=== PATIENT | female | born 1970 | race Caucasian/White ===

== ENCOUNTER 2018-07-28 21:23 | Emergency (ER) | payer BC ==
[~2018-07-28] VITALS: Ht 167.6 cm; Wt 57.6 kg
[2018-07-28] MEDS ORDERED: diltiazem 5mg/ml 5ml inj. IV STA (22:03)
[2018-07-28 22:12] LABS: BASOPHILS % (AUTO) 0.6 % (0-1); EOSINOPHILS # (AUTO) 0.1 X10'3 (0-0.9); HEMATOCRIT 46.5 % (35.0-45.0); HEMOGLOBIN 15.1 g/dl (12.0-16.0); LYMPHOCYTES # (AUTO) 2.3 X10'3 (1.1-4.8); LYMPHOCYTES % (AUTO) 29.5 % (21-51); MEAN CORPUSCULAR HEMOGLOBIN 31.2 PG (27.0-31.0); MEAN CORPUSCULAR HGB CONC 32.5 % (33.0-36.5); MEAN CORPUSCULAR VOLUME 95.9 FL (78-98); MEAN PLATELET VOLUME 8.8 FL (7.4-10.4); MONOCYTES # (AUTO) 0.5 X10'3 (0-0.9); MONOCYTES % (AUTO) 6.7 % (2-12); NEUTROPHILS # (AUTO) 4.8 X10'3 (1.8-7.7); NEUTROPHILS % (AUTO) 62.2 % (42-75); PLATELET COUNT 258 X10'3 (140-440); RED BLOOD COUNT 4.85 X10'6 (4.20-5.60); WHITE BLOOD COUNT 7.7 X10'3 (4.5-11.0)
[2018-07-28 22:22] LABS: ALANINE AMINOTRANSFERASE 27 U/L (12-78); ALBUMIN 4.3 G/DL (3.4-5.0); ALBUMIN/GLOBULIN RATIO 1.1 (1.1-1.5); ALKALINE PHOSPHATASE 80 IU/L (46-116); ANION GAP 15 (8-16); ASPARTATE AMINO TRANSFERASE 21 U/L (10-37); BILIRUBIN,TOTAL 0.2 MG/DL (0.1-1.0); BLOOD UREA NITROGEN 11 MG/DL (7-18); BUN/CREATININE RATIO 13.9 (6.6-38.0); CALCIUM 9.5 MG/DL (8.5-10.1); CHLORIDE 103 MMOL/L (99-107); CREATININE 0.79 MG/DL (0.40-0.90); GLUCOSE 112 MG/DL (70-104); POTASSIUM 3.5 MMOL/L (3.5-5.1); SODIUM 144 MMOL/L (135-145); TOTAL CARBON DIOXIDE 26.4 MMOL/L (24-32); TOTAL PROTEIN 8.3 G/DL (6.4-8.2); eGFR 79 ML/MIN
[2018-07-28 22:32] LABS: PARTIAL THROMBOPLASTIN TIME 25 SECONDS (22-32); PROTHROMBIN TIME 10.2 SECONDS (9.0-12.0)
[2018-07-28] MEDS ORDERED: diltiazem 5mg/ml 5ml inj. IV ONE (22:50)
--- NOTE | 2018-07-28 23:30 | NUR ---
dr alexander talked to pt about poc. pt ate dinner around 1999, so cardioversion planned for 199
[2018-07-29] MEDS ORDERED: diltiazem-D5W 125mg/125ml 125 ML IV PRN (01:04)
[2018-07-29] MEDS ORDERED: heparin 10,000 units/1 ML INJ IV ONE (01:40)
[2018-07-29] MEDS ORDERED: propofol 1000mg/100ml bottle 100 ML IV ONE (02:14)
[2018-07-29 04:07] VITALS: BP 112/69
== END 2018-07-29 04:17 | disposition home or self-care (01) ==
LOC: ER 21:23
DX: I48.2 Chronic atrial fibrillation (principal)
CPT/HCPCS: 36415; 71046; 80053; 84443; 84484; 85025; 85610; 85730; 92960; 93005; 94760; 96365; 96375; 96376; 99152; 99153; 99285; J1644; J2704; J3490